=== PATIENT | female | born 1985 | race Caucasian/White ===

== ENCOUNTER 2020-08-01 20:55 | Emergency (ER) | payer OTHER ==
[2020-08-02 00:50] LABS: HEMOGLOBIN 15.2 gm/dl (12.3-15.3); RED BLOOD COUNT 5.14 M/UL (4.00-5.10); WHITE BLOOD COUNT 4.2 K/UL (4.5-11.0)
[2020-08-02 01:19] LABS: BUN/CREATININE RATIO 13 (0-10)
[2020-08-02] MEDS ORDERED: DECADRON6 MG PO (03:12)
[2020-08-02] MEDS ORDERED: AZITHROMYCIN250 MG PO (03:12)
== END 2020-08-02 04:17 | disposition home or self-care (01) ==
LOC: ER1 20:55
PROVIDERS: Family Medicine
DX: Z23 Encounter for immunization (principal); U07.1 COVID-19; E66.01 Morbid (severe) obesity due to excess calories; R03.0 Elevated blood-pressure reading, without diagnosis of hypertension; Z90.89 Acquired absence of other organs
CPT/HCPCS: 36600; 71045; 80053; 82550; 82553; 82803; 83605; 83874; 83880; 84484; 85025; 99285; M0245; Q0245